=== PATIENT | female | born 1990 | race African-American/Black ===

== ENCOUNTER 2018-06-03 14:51 | Emergency (ER) | payer SELFPAY ==
[2018-06-03] MEDS: DIPHTH,PERTUSS(ACELL),TET TOX 0.5 ML DISP.SYRIN. VAX IM (15:15)
[2018-06-03] MEDS: LIDOCAINE WITH 8.4% SOD BICARB 3 ML DISP.SYRIN. INJ (15:15)
== END 2018-06-03 16:16 | disposition home or self-care (01) ==
LOC: ER 14:51
DX: S01.81XA Laceration without foreign body of other part of head, initial encounter (principal); W01.198A Fall on same level from slipping, tripping and stumbling with subsequent striking against other object, initial encounter; Y93.01 Activity, walking, marching and hiking; Y92.89 Other specified places as the place of occurrence of the external cause; Y99.8 Other external cause status
CPT/HCPCS: 12011; 70150; 99284

== ENCOUNTER 2018-06-11 08:27 | Emergency (ER) | payer SELFPAY | END 2018-06-11 10:15 | disposition home or self-care (01) | LOC: ER 10:15 | DX: S01.81XD Laceration without foreign body of other part of head, subsequent encounter (principal); X58.XXXD Exposure to other specified factors, subsequent encounter | CPT/HCPCS: 99281 ==